=== PATIENT | female | born 1955 | race Caucasian/White ===

== ENCOUNTER 2016-10-07 05:51 | Inpatient (IN) | payer OTHER ==
[2016-10-06 11:51] LABS: BASOPHILS # (AUTO) 0.1 K/uL (0.00-0.22); EOSINOPHILS # (AUTO) 0.1 K/uL (0-0.4); EOSINOPHILS % (AUTO) 1.9 % (0.0-4.0); HEMATOCRIT 41.3 % (36-48); HEMOGLOBIN 13.4 g/dL (12.0-16.0); LYMPHOCYTES # (AUTO) 1.8 K/uL (2.5-16.5); LYMPHOCYTES % (AUTO) 25.9 % (20.5-51.1); MEAN CORPUSCULAR HEMOGLOBIN 30 pg (27-31); MEAN CORPUSCULAR HGB CONC 33 g/dL (33-37); MEAN CORPUSCULAR VOLUME 92 fL (80-94); MONOCYTES # (AUTO) 0.5 K/uL (0.8-1.0); MONOCYTES % (AUTO) 7.1 % (1.7-9.3); NEUTROPHILS # (AUTO) 4.6 K/uL (1.8-7.7); NEUTROPHILS % (AUTO) 63.1 % (42.2-75.2); PLATELET COUNT (AUTO) 270 K/uL (140-450); RED CELL DISTRIBUTION WIDTH 11.3 % (11.6-13.7); WHITE BLOOD COUNT (AUTO) 7.1 K/uL (4.8-10.8)
[2016-10-06 12:55] LABS: ALBUMIN 3.4 g/dL (3.4-5.0); CALCIUM 8.5 mg/dL (8.5-10.1); CREATININE 0.6 mg/dL (0.6-1.3); TOTAL BILIRUBIN 0.5 mg/dL (0.0-1.0); TOTAL PROTEIN, SERUM 7.4 g/dL (6.4-8.2)
[2016-10-06 12:59] LABS: ANION GAP 7.8 (8-16); CARBON DIOXIDE 31.3 mmol/L (21-32); POTASSIUM 4.1 mmol/L (3.5-5.1)
[~2016-10-07] VITALS: Ht 144.8 cm; Wt 61.7 kg
[2016-10-07] MEDS ORDERED: ACETAMINOPHEN/CODEINE 300/30MG 1 TAB PO PRN (07:40)
[2016-10-07] MEDS ORDERED: MORPHINE SULFATE 4 MG/ML SYR IM/IVP PRN (07:40)
[2016-10-07] MEDS ORDERED: IBUPROFEN 800 MG TAB PO PRN (07:40)
[2016-10-07] MEDS ORDERED: ONDANSETRON 4 MG/2 ML VIAL IVP PRN ×2 (07:40→09:45)
[2016-10-07] MEDS ORDERED: MIDAZOLAM 2 MG/2 ML VIAL ONE (07:43)
[2016-10-07] MEDS ORDERED: fentaNYL 0.05 MG/ML VIAL ONE (07:43)
[2016-10-07] MEDS ORDERED: LIDOCAINE 2% 100 MG/5 ML SYR IVP ONE (09:12)
[2016-10-07] MEDS ORDERED: SEVOFLURANE 250 ML BTL INH ONE (09:12)
[2016-10-07] MEDS ORDERED: PROPOFOL 200 MG/20 ML VIAL IV ONE (09:12)
[2016-10-07] MEDS ORDERED: HYDROmorphone 1 MG/ML AMP IVP PRN (09:45)
[2016-10-07] MEDS: HYDROmorphone PFS 2 MG/ML SYR ONE ×2 (10:30→10:40)
== END 2016-10-07 17:30 | disposition home or self-care (01) | DRG 748 ==
LOC: MMU 05:51 → EDSTATUS 09:05 → MTU 10:16
PROVIDERS: ADMIT Obstetrics & Gynecology; ATTEND Obstetrics & Gynecology
PROC: 0JQC0ZZ Repair Pelvic Region Subcutaneous Tissue and Fascia, Open Approach (ICD-10-PCS; 2016-10-07)
PROC: 0JQC0ZZ Repair Pelvic Region Subcutaneous Tissue and Fascia, Open Approach (ICD-10-PCS; principal; 2016-10-07 09:05)
DX: N81.10 Cystocele, unspecified (principal); N81.6 Rectocele; Z90.710 Acquired absence of both cervix and uterus
CPT/HCPCS: 36415; 71010; 80053; 85025; 86886; 86900; 86901; 87081; 93005; J0690; J1170; J2001; J2250; J2405; J2704; J3010; J7030; J7060; Q0092